=== PATIENT | female | born 1945 | race Caucasian/White ===

== ENCOUNTER 2017-09-19 14:57 | Emergency (ER) | payer BC, MEDICARE, OTHER ==
--- NOTE | 2017-09-19 15:21 | ED Physician Chart ---
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 pain, A/N/V/D/C, back pain, flank pain, or urinary s/s Allergies:: Allergies Allergy/AdvReac Type Severity Reaction Status Date / Time MDX Caffeine [Caffeine] Allergy Unknown Unverified 03/11/14 17:36 MDX Codeine [Codeine] Allergy Unknown Unverified 03/11/14 17:36 Historian:: Patient, Family Member Review:: Nurse's Note Reviewed ED Review of Systems - Review of Systems General/Constitutional: No fever, No chills, No weight loss, No weakness, No diaphoresis, No edema, No loss of appetite Skin: No skin lesions, No rash, No bruising Head: No headache, No light-headedness Eyes: No loss of vision, No pain, No diplopia ENT: No earache, No nasal drainage, No sore throat, No tinnitus Neck: No neck pain, No swelling, No thyromegaly, No stiffness, No mass noted Cardio Vascular: No chest pain, No palpitations, No PND, No orthopnea, No edema Pulmonary: No SOB, No cough, No sputum, Wheezing GI: Nausea, Vomiting, Diarrhea, No pain, No melena, No hematochezia, No constipation, No hematemesis G/U: No dysuria, No frequency, No hematuria Licensed Optician: No vaginal discharge, No abnormal vaginal bleed, No contraction Musculoskeletal: Bone or joint pain, No back pain, Muscle pain Endocrine: Polyuria, Polydipsia Psychiatric: No prior psych history, No depression, No anxiety, No suicidal ideation, No homicidal ideation, No auditory hallucination, No visual hallucination Hematopoietic: No bruising, No lymphadenopathy Allergic/Immuno: No urticaria, No angioedema Neurological: No syncope, No focal symptoms, No weakness, No paresthesia, No headache, No seizure, No dizziness, No confusion, No vertigo ED Past Medical History - Past Medical History Obtainable: Yes Past Medical History: HTN, DM, Asthma/COPD, Dyslipidemia, PUD/GERD Family History: Diabetes Melitus, HTN Social History: Non Smoker, No Alcohol, No Drug Use, Surgical History: other (T and A; Eye Surgery) Psychiatricy History: None Medication: Reviewed ED Physical Exam - Physical Examination General/Constitutional: Awake, Well-developed, well-nourished, Alert, No distress, GCS 15, Non-toxic appearing, Ambulatory Head: Atraumatic Eyes: Lids, conjuctiva normal, PERRL, EOMI Skin: Nl inspection, No rash, No skin lesions, No ecchymosis, Well hydrated, No lymphadenopathy ENMT: External ears, nose nl, Nasal exam nl, Lips, teeth, gums nl Neck: Nontender, Full ROM w/o pain, No JVD, No nuchal rigidity, No bruit, No mass, No stridor Respiratory: Nl effort/Exclusion, Clear to Auscultation, No Wheeze/Rhonchi/Rales Cardio Vascular: RRR, No murmur, gallop, rubs, NL S1 S2 GI: No tenderness/rebounding/guarding, No organomegaly, No hernia, Normal BS's, Nondistended, No mass/bruits, No McBurney tenderness : No CVA tenderness Extremities: No tenderness or effusion, Full ROM, normal strength in all extremities, No edema, Normal digits & nails Neuro/Psych: Alert/oriented, DTR's symmetric, Normal sensory exam, Normal motor strength, Judgement/insight normal, Mood normal, Normal gait, No focal deficits Misc: Normal back, No paraspinal tenderness ED Septic Shock - . Is Septic Shock (SBP<90, OR Lactate>4 mmol\L) present?: No
--- NOTE | 2017-09-20 07:00 | Diagnostic Imaging Report ---
Exam: X-ray cervical spine HISTORY: Pain Findings: Multiple views of cervical spine reviewed. The study is suboptimal due to patient inability cooperate. Patient refused additional examination. Only three upper cervical vertebra well visualized. The odontoid process is poorly seen. IMPRESSION: 1. Suboptimal examination cervical spine due to patient inability to cooperate and emptying combative. Follow-up repeat examination recommended.
--- NOTE | 2017-09-20 07:01 | Diagnostic Imaging Report ---
Exam: Left clavicle. HISTORY: Pain Findings: 2 views of the left clavicle reviewed. The study demonstrates no evidence of fracture dislocation or chronic cortical separation. IMPRESSION: Normal examination left clavicle.
--- NOTE | 2017-09-20 07:12 | Diagnostic Imaging Report ---
Exam: Left shoulder joint. HISTORY: Pain. Findings: Limited portable exam of left shoulder joint at 1605 hours is reviewed. Patient was not able to cooperate with examination. The study is limited. The study demonstrates no evidence of fracture dislocation. The head of left humerus is well within the glenoid fossa. The acromioclavicular joint is intact. There is evidence for osteochondritis. IMPRESSION: 1. Essentially unremarkable examination left shoulder joint, or osteochondritis. The study is limited due to patient inability to cooperate.
== END 2017-09-19 18:29 | disposition home or self-care (01) ==
LOC: ER 14:57
DX: S43.402A Unspecified sprain of left shoulder joint, initial encounter (principal); S16.1XXA Strain of muscle, fascia and tendon at neck level, initial encounter; M19.90 Unspecified osteoarthritis, unspecified site; I10 Essential (primary) hypertension; M54.2 Cervicalgia; E11.9 Type 2 diabetes mellitus without complications; E78.5 Hyperlipidemia, unspecified; X58.XXXA Exposure to other specified factors, initial encounter; Y93.89 Activity, other specified; Y92.89 Other specified places as the place of occurrence of the external cause; Y99.8 Other external cause status
CPT/HCPCS: 72040-TC; 73000-TC-LT; 73030-TC-LT; Z7502